=== PATIENT | male | born 1995 ===

== ENCOUNTER 2021-08-31 17:21 | Emergency (ER) | payer SELFPAY | END 2021-08-31 21:30 | disposition left against medical advice (07) | LOC: ED 17:21 | DX: Z00.00 Encounter for general adult medical examination without abnormal findings (principal); Z53.21 Procedure and treatment not carried out due to patient leaving prior to being seen by health care provider; W19.XXXA Unspecified fall, initial encounter; Y93.89 Activity, other specified; Y92.89 Other specified places as the place of occurrence of the external cause; Y99.8 Other external cause status ==